=== PATIENT | female | born 1990 | race Two or more races ===

== ENCOUNTER 2024-07-18 19:05 | Emergency (ER) | payer OTHER ==
[~2024-07-18] VITALS: Ht 160 cm; Wt 88.7 kg
[2024-07-18 19:36] VITALS: BP 147/96; PULSE 77; RESP 18; TEMP 97.8; O2SAT 100
== END 2024-07-18 20:57 | disposition home or self-care (01) ==
LOC: ER 19:05
DX: S43.492A Other sprain of left shoulder joint, initial encounter (principal); E04.2 Nontoxic multinodular goiter; F41.9 Anxiety disorder, unspecified; Z88.8 Allergy status to other drugs, medicaments and biological substances; Z91.041 Radiographic dye allergy status; X58.XXXA Exposure to other specified factors, initial encounter; Y93.89 Activity, other specified; Y92.89 Other specified places as the place of occurrence of the external cause; Y99.8 Other external cause status
CPT/HCPCS: 73200

== ENCOUNTER 2024-08-24 21:32 | Emergency (ER) | payer OTHER ==
[~2024-08-24] VITALS: Ht 165.1 cm; Wt 86.6 kg
[2024-08-24 21:32] VITALS: BP 135/80; PULSE 94; RESP 22; TEMP 98.5; O2SAT 99
[2024-08-24] MEDS: ONDANSETRON ODT 4 MG TAB PO ONE (22:07)
[2024-08-24] MEDS: ACETAMINOPHEN 325 MG TAB PO ONE (22:07)
--- NOTE | 2024-08-24 22:11 | ED.PDOC ---
GI ASSESSMENT HPI Comments 33-year-old female presents to ER with complaints of flank pain x1 hour. Patient with past medical history significant for a 5 mm right-sided kidney stone reports she has been experiencing bilateral flank pain x1 hour with associated abdominal bloating, diffuse left sided abdominal pain and nausea x2 hours. She rates her current pain a 7/10 to bilateral flanks and to left side of abdomen without radiation. States that she did take simethicone for her symptoms without relief and presents to ER ambulatory on arrival, with steady gait, in mild distress. Notes she has also been experiencing diarrhea x four days. Denies fever, body aches, chills, vomiting, chest pain, shortness of breath, bloody diarrhea, changes in urination or any further symptoms/complaints Chief Complaint: Flank Pain Time Seen by MD: 21:37 Primary Care Provider: Karl Reviewed Notes: Nurses Notes, Medications, Allergies Allergies: Coded Allergies: Iodine (Verified Allergy, Unknown, 07/18/24) Lamotrigine (Verified Allergy, Unknown, 07/18/24) Home Meds Active Scripts Ibuprofen (Ibuprofen) 800 Mg Tab, 1 TAB PO TID PRN, #30 TAB 0 Refills Prov:ANGELO MENDOZA 08/24/24 Tamsulosin Hcl (Flomax) 0.4 Mg Cap, 1 CAP PO DAILY, #7 CAP 0 Refills Prov:ANGELO MENDOZA 08/24/24 Information Source: Patient Mode of Arrival: Ambulatory Past Medical History PAST MEDICAL HISTORY: Anxiety Past Medical History (Other): Bipolar 5 mm right-sided kidney stone 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 History [facility] 08-09-24 Family History Family History: Unknown Social History Smoker: Non-Smoker Alcohol: Denies ETOH Use Drugs: Denies Drug Use Lives In: Home Constitutional: denies: chills, diaphoresis, fatigue, fever, malaise, sweats, weakness, others EENTM: denies: blurred vision, double vision, ear bleeding, ear discharge, ear drainage, ear pain, ear ringing, eye pain, eye redness, hearing loss, mouth pain, mouth swelling, nasal discharge, nose bleeding, nose congestion, nose pain, photophobia, tearing, throat pain, throat swelling, voice changes, others Respiratory: denies: cough, hemoptysis, orthopnea, SOB at rest, shortness of breath, SOB with excertion, stridor, wheezing, others Cardiovascular: denies: chest pain, dizzy spells, diaphoresis, Dyspnea on exertion, edema, irregular heart beat, left arm pain, lightheadedness, palpitations, PND, syncope, others Gastrointestinal: reports: others (As stated in HPI) Genitourinary: reports: others (As stated in HPI) Neurological: denies: dizziness, fainting, headache, left sided numbness, left sided weakness, numbness, paresthesia, pre-existing deficit, right sided numbness, right sided weakness, seizure, speech problems, tingling, tremors, weakness, others Musculoskeletal: denies: back pain, gout, joint pain, joint swelling, muscle pain, muscle stiffness, neck pain, others Integumetry: denies: bruises, change in color, change in hair/nails, dryness, laceration, lesions, lumps, rash, wounds, others Allergic/Immunocompromised: denies: Difficulty Healing, Frequent Infections, Hives, Itching, others Hematologic/Lymphatic: denies: anemia, blood clots, easy bleeding, easy bruising, swollen glands, others Endocrine: denies: excessive hunger, excessive sweating, excessive thirst, excessive urination, flushing, intolerance to cold, intolerance to heat, unexplained weight gain, unexplained weight loss, others Psychiatric: denies: anxiety, bipolar disorder, depression, hopeless, panic disorder, schizophrenia, sleepless, suicidal, others Physical Exam General Appearance: Mild Distress (Due to bilateral flank pain and left sided abdominal pain), Obese HEENT: Normal ENT Inspection, PERRL/EOMI, Pharynx Normal, TMs Normal Neck: Full Range of Motion, Non-Tender, Normal Respiratory: Chest Non-Tender, Lungs Clear, No Accessory Muscle Use, No Respiratory Distress, Normal Breath Sounds Cardiovascular: No Murmur, No Gallop, Regular Rate/Rhythm Breast Exam: Deferred Gastrointestinal: No Organomegaly, No Pulsatile Mass, Normal Bowel Sounds, Soft, Other (Slight TTP to left lower quadrant of abdomen appreciated. No rebound/guarding noted. No hernia/masses/skin changes appreciated. Negative Frances's sign. No other TTP to abdomen noted) Genitalia: Deferred Pelvic: Deferred Rectal: Deferred Extremities: Normal capillary refill, Normal range of motion Musculoskeletal : Extremity Location: Back (TTP to bilateral flanks noted. No CVA tenderness noted bilaterally. Steady gait appreciated) Neurologic: Alert, waste picker II-XII nml as Tested, No Motor Deficits, No Sensory Deficits Cerebellar Function: Normal Reflexes: Normal Skin: Dry, Normal Color, Warm Peripheral Pulses: 2+ Radial (R), 2+ Radial (L), 2+ Brachial (R), 2+ Brachial (L) Lymphatic: No Adenopathy Was a procedure done? Was a procedure done?: No Sedation Sedation?: No GI differential Dx Differential Diagnosis: Appendicitis, Cholecystitis, GI hemorrhage, Ischemic Bowel, Trauma intraabdominal X-Ray, Labs, Meds, VS Vital Signs Date Time Temp Pulse Resp B/P (MAP) Pulse Ox O2 Delivery O2 Flow Rate FiO2 08/24/24 21:32 98.5 94 22 135/80 (98) 99 98.5 08/24/24 21:32 Room Air 08/24/24 21:32 98.5 94 22 135/80 (98) 99 Lab Test 08/24/24 22:30 08/24/24 22:05 08/24/24 21:53 Range/Units White Blood Count 7.7 4.4-10.8 10^3/uL Red Blood Count 4.48 4.0-5.20 10^6/uL Hemoglobin 12.3 12.2-16.2 g/dL Hematocrit 35.8 L 36.0-46.0 % Mean Corpuscular Volume 79.9 L 80.0-100.0 fL Mean Corpuscular Hemoglobin 27.6 L 28.0-32.0 pg Mean Corpuscular Hemoglobin Concent 34.5 32.0-36.0 g/dL Red Cell Distribution Width 14.4 H 11.8-14.3 % Platelet Count 285 140-450 10^3/uL Mean Platelet Volume 7.3 6.9-10.8 fL Neutrophils (%) (Auto) 66.2 37.0-80.0 % Lymphocytes (%) (Auto) 16.5 10.0-50.0 % Monocytes (%) (Auto) 11.4 0.0-12.0 % Eosinophils (%) (Auto) 5.2 0.0-7.0 % Basophils (%) (Auto) 0.7 0.0-2.0 % Neutrophils # (Auto) 5.1 1.6-8.6 10 ^3/uL Lymphocytes # (Auto) 1.3 0.4-5.4 10 ^3/uL Monocytes # (Auto) 0.9 0-1.3 10 ^3/uL Eosinophils # (Auto) 0.4 0-0.8 10 ^3/uL Basophils # (Auto) 0.1 0-0.2 10 ^3/uL Nucleated Red Blood Cells 0.0 % Sodium Level 142 136-145 mmol/L Potassium Level 2.8 L 3.5-5.1 mmol/L Chloride Level 109 H 98-107 mmol/L Carbon Dioxide Level 26 20-31 mmol/L Anion Gap 7 5-15 Blood Urea Nitrogen 6 L 9-23 mg/dL Creatinine 0.73 0.550-1.02 mg/dL Glomerular Filtration Rate Calc 113 >90 mL/min BUN/Creatinine Ratio 8.2 L 10.0-20.0 Serum Glucose 91 74-106 mg/dL Calcium Level 9.1 8.7-10.4 mg/dL Total Bilirubin 0.5 0.2-1.0 mg/dL Aspartate Amino Transferase (AST) 56 H 13-40 U/L Alanine Aminotransferase (ALT) 83 H 7-40 U/L Alkaline Phosphatase 81 46-116 U/L Total Protein 7.0 5.7-8.2 g/dL Albumin 4.2 3.2-4.8 g/dL Lipase 41 12-53 U/L Influenza Type A Antigen Negative Negative Influenza Type B Antigen Negative Negative SARS-CoV-2 Antigen (Rapid) Negative NEGATIVE Urine Color Colorless Yellow Urine Clarity Clear Clear Urine pH 6.5 5.0-9.0 Urine Specific [place] 1.004 1.001-1.035 Urine Protein Negative Negative Urine Ketones Negative Negative Urine Blood Negative Negative /uL Urine Nitrite Negative Negative Urine Bilirubin Negative Negative Urine Urobilinogen Normal Negative mg/dL Urine Leukocyte Esterase Negative Negative /uL Urine RBC 1 0 - 4 /hpf Urine WBC 2 0 - 5 /hpf Urine Squamous Epithelial Cells Few <5 /hpf Urine Bacteria Few H None Seen /hpf Urine Glucose Normal Normal mg/dL Urine Test Negative Negative Current Medications Medications (Trade) Dose Ordered Sig/[place] Route Start Time Stop Time Status Last Admin Sodium Chloride 500 ml @ 500 mls/hr Q1H ONCE IV 08/24/24 22:00 08/24/24 22:59 DC 08/24/24 22:23 Ondansetron HCl (Zofran Po) 4 mg ONCE ONCE PO 08/24/24 22:00 08/24/24 22:01 DC 08/24/24 22:07 Acetaminophen (Tylenol Tablet) 650 mg ONCE ONCE PO 08/24/24 22:00 08/24/24 22:01 DC 08/24/24 22:07 Ketorolac Tromethamine (Toradol Injection) 30 mg ONCE ONCE IV 08/24/24 22:45 08/24/24 22:53 DC 08/24/24 22:58 Tamsulosin HCl (Flomax) 0.4 mg ONCE ONCE PO 08/24/24 22:45 08/24/24 22:53 DC 08/24/24 23:01 PATIENT: PADMAJA TAYLOR NACCT: [id number]: [id number] : 1990 LOC: ER ROOM / BED: / AGE / SEX: 33 / F ADM STATUS: REG ER SERVICE 56 ORDERING PHYSICIAN: ANGELO MENDOZA PROCEDURE(s): ABPL - CT AB PEL WO CON-NO ORAL OR IV REASON: bilateral flank pain ORDER NUMBER(s): [id number], ACCESSION NUMBER(s): [id number] Exam: CT CT AB PEL WO CON-NO ORAL OR IV History: bilateral flank pain Comparison Study: None Technique: Multidetector spiral CT of the abdomen was performed from lung bases to pubic symphysis. Imaging was performed without IV contrast. Axial, coronal and sagittal multiplanar reformats were obtained from the axial data set by the technologist. Radiation Dose : 1. Abdomen/Pelvis: CTDIvol 11 mGy, DLP 552.4 mGy*cm. Findings: Evaluation of solid organs is limited due to lack of intravenous contrast use. Lung Bases: No acute or significant lung base finding. Normal heart size. No pleural or pericardial effusion. Liver: The liver is normal in size. No focal lesions. Gallbladder and Biliary Tree: Unremarkable Spleen: Unremarkable Pancreas: The pancreas is grossly normal in appearance. Adrenal Glands: Unremarkable Kidneys: 5 mm stone in the midpole of the right kidney. No hydronephrosis. Left kidney is unremarkable. Bladder: Grossly unremarkable for degree of distention. Bowel: The stomach is grossly normal in appearance. Small bowel and colon are normal in caliber and distribution. Normal appendix is visualized in the right lower quadrant without findings of appendicitis. Ascites: Absent Lymphadenopathy: No mesenteric, retroperitoneal or periportal lymphadenopathy. Abdominal Wall and Mesentery: Unremarkable. Vasculature: The visualized abdominal aorta is normal in size and caliber. Evaluation of abdominal and pelvic vessels is limited due to lack of intravenous contrast. Pelvic Organs: Unremarkable Musculoskeletal: No aggressive focal bony lesions, acute fractures or dislocation. IMPRESSION: 1. 5 mm stone in the midpole of the right kidney. No hydronephrosis. Radiation optimization: All CT scans at this facility use at least one of these dose optimization techniques: automated exposure control mA and/or kV adjustment per patient size (includes targeted exams where dose is matched to clinical indication) or iterative reconstruction. ATED BY: BRITT OSULLIVAN MD DICTATED DATE/TIME: 08/24/242228 SIGNED BY: BRITT OSULLIVAN MD SIGNED DATE/TIME: 08/24/242228 CC: CBC reviewed without any significant abnormalities BMP reviewed- potassium 2.8, AST 56, ALT 83 Lipase reviewed-normal Hep-Lock IV ordered NS 1 L IV ordered Tylenol 650 mg p.o. ordered Zofran 4 mg p.o. ordered Toradol 30 mg IV ordered Flomax 0.5 mg p.o. ordered Potassium 40 mEq p.o. ordered Urinalysis reviewed without any significant abnormalities Urine reviewed-negative Patient reported improvement in symptoms and denied any pain prior to discharge Advised to drink plenty of fluids Advised to follow up with PCP and urologist in 1-2 days Patient verbalized understanding and agreeable with current plan of care Advised to return to ER immediately if symptoms worsen Images Reviewed?: Images reviewed and evaluated by me Time of 1ST Reevaluation: 22:02 Reevaluation 1ST: N/A Patient Education/Counseling: Diagnosis, Treatment, Prognosis, Need For Follow Up Family Education/Counseling: No Family Present Departure 1 Departure Time of Disposition: 22:42 Impression: Primary Impression: Right nephrolithiasis Additional Impressions: Viral gastroenteritis Dehydration Disposition: HOME / SELF CARE / HOMELESS Condition: Stable e-Prescriptions Ibuprofen (Ibuprofen) 800 Mg Tab 1 TAB PO TID PRN, #30 TAB 0 Refills Prov: ANGELO MENDOZA 08/24/24 Tamsulosin Hcl (Flomax) 0.4 Mg Cap 1 CAP PO DAILY, #7 CAP 0 Refills Prov: ANGELO MENDOZA 08/24/24 Discharged With: Self Critical Care Note Critical Care Time?: No Stability Stability form required: No Heart Score Heart Score: Heart Score Response (Comments) Value History N/A 0 EKG N/A 0 Age N/A 0 Risk Factors N/A 0 Troponin N/A 0 Total 0 ANGELO MENDOZA Aug 24, 2024 22:11
[2024-08-24 22:18] LABS: Urine Bacteria FEW /hpf (None Seen); Urine Blood Negative /uL (Negative); Urine Clarity Clear (Clear); Urine Color Colorless (Yellow); Urine Protein, UAD Negative (Negative); Urine Specific Gravity 1.004 (1.001-1.035); Urine Urobilinogen Normal (Negative); Urine WBC 2 /hpf (0 - 5); Urine pH 6.5 (5.0-9.0)
[2024-08-24] MEDS: SODIUM CHLORIDE 0.9% 500 ML IV ONE (22:23)
--- NOTE | 2024-08-24 22:31 | DVH ---
Exam: CT CT AB PEL WO CON-NO ORAL OR IV History: bilateral flank pain Comparison Study: None Technique: Multidetector spiral CT of the abdomen was performed from lung bases to pubic symphysis. Imaging was performed without IV contrast. Axial, coronal and sagittal multiplanar reformats were ob tained from the axial data set by the technologist. Radiation Dose : 1. Abdomen/Pelvis: CTDIvol 11 mGy, DLP 552.4 mGy*cm. Findings: Evaluation of solid organs is limited due to lack of intravenous contrast use. Lung Bases: No acute or significant lung base finding. Normal heart size. No pleural or pericardial effusion. Liver: The liver is normal in size. No focal lesions. Gallbladder and Biliary Tree: Unremarkable Spleen: Unremarkable Pancreas: The pancreas is grossly normal in appearance. Adrenal Glands: Unremarkable Kidneys: 5 mm stone in the midpole of the right kidney. No hydronephrosis. Left kidney is unremarkabl e. Bladder: Grossly unremarkable for degree of distention. Bowel: The stomach is grossly normal in appearance. Small bowel and colon are normal in caliber and d istribution. Normal appendix is visualized in the right lower quadrant without findings of appendici tis. Ascites: Absent Lymphadenopathy: No mesenteric, retroperitoneal or periportal lymphadenopathy. Abdominal Wall and Mesentery: Unremarkable. Vasculature: The visualized abdominal aorta is normal in size and caliber. Evaluation of abdominal a nd pelvic vessels is limited due to lack of intravenous contrast. Pelvic Organs: Unremarkable Musculoskeletal: No aggressive focal bony lesions, acute fractures or dislocation. IMPRESSION: 1. 5 mm stone in the midpole of the right kidney. No hydronephrosis. Radiation optimization: All CT scans at this facility use at least one of these dose optimization rosaline hniques: automated exposure control mA and/or kV adjustment per patient size (includes targeted exam s where dose is matched to clinical indication) or iterative reconstruction.
[2024-08-24 22:36] LABS: COVID19 ANTIGEN SOFIA FIA NEGATIVE (NEGATIVE); Rapid Influenza A Negative (Negative); Rapid Influenza B Negative (Negative)
[2024-08-24 22:43] LABS: Eosinophils # (auto) 0.4 10 ^3/uL (0-0.8); Eosinophils % (auto) 5.2 % (0.0-7.0)
[2024-08-24 22:45] LABS: Basophils # (auto) 0.1 10 ^3/uL (0-0.2); Basophils % (auto) 0.7 % (0.0-2.0); Hematocrit 35.8 % (36.0-46.0); Hemoglobin 12.3 g/dL (12.2-16.2); Lymphocytes # (auto) 1.3 10 ^3/uL (0.4-5.4); Lymphocytes % (auto) 16.5 % (10.0-50.0); Mean Corpuscular Hemoglobin 27.6 pg (28.0-32.0); Mean Corpuscular Hgb Conc. 34.5 g/dL (32.0-36.0); Mean Corpuscular Volume 79.9 fL (80.0-100.0); Monocytes # (auto) 0.9 10 ^3/uL (0-1.3); Monocytes % (auto) 11.4 % (0.0-12.0); Neutrophils # (auto) 5.1 10 ^3/uL (1.6-8.6); Neutrophils % (auto) 66.2 % (37.0-80.0); Platelet Count (auto) 285 10^3/uL (140-450); Red Blood Cells 4.48 10^6/uL (4.0-5.20); Red Cell Distribution Width 14.4 % (11.8-14.3); White Blood Cell 7.7 10^3/uL (4.4-10.8)
[2024-08-24] MEDS ORDERED: IBUP-1456 PO (22:51)
[2024-08-24] MEDS ORDERED: TAMS-35 PO (22:51)
[2024-08-24] MEDS: KETOROLAC TROMETH 30 MG/ML 1ML VIAL IV ONE (22:58)
[2024-08-24 23:00] LABS: Alanine Aminotransferase 83 U/L (7-40); Albumin 4.2 g/dL (3.2-4.8); Alkaline Phosphatase 81 U/L (46-116); Anion Gap 7 (5-15); Aspartate Aminotransferase 56 U/L (13-40); BUN/Creatinine Ratio 8.2 (10.0-20.0); Bilirubin, Total 0.5 mg/dL (0.2-1.0); Blood Urea Nitrogen 6 mg/dL (9-23); Calcium 9.1 mg/dL (8.7-10.4); Carbon Dioxide 26 mmol/L (20-31); Chloride 109 mmol/L (98-107); Glucose 91 mg/dL (74-106); Potassium 2.8 mmol/L (3.5-5.1); Sodium 142 mmol/L (136-145)
[2024-08-24] MEDS: TAMSULOSIN HYDROCHLORIDE 0.4 MG CAP PO ONE (23:01)
[2024-08-24] MEDS: POTASSIUM CHL 20 Meq TABLET PO ONE (23:21)
== END 2024-08-25 00:35 | disposition home or self-care (01) ==
LOC: ER 21:32
DX: A08.4 Viral intestinal infection, unspecified (principal); N20.0 Calculus of kidney; E86.0 Dehydration; Z98.890 Other specified postprocedural states; Z88.8 Allergy status to other drugs, medicaments and biological substances; Z20.822 Contact with and (suspected) exposure to COVID-19
CPT/HCPCS: 36415; 74176; 80053; 81001; 81025; 83690; 85025; 87426; 87804; 96361; 96374; 99285; J1885; J7040; Q0162